=== PATIENT | male | born 1955 | race Two or more races ===

== ENCOUNTER 2024-06-02 06:48 | Emergency (ER) | payer MEDICARE, SELFPAY ==
[2024-06-02 06:48] VITALS: BMI 33.4
[2024-06-02 06:56] VITALS: BP 133/82; PULSE 105; RESP 18; TEMP 36.4; O2SAT 96
--- NOTE | 2024-06-02 06:58 | XR_ITS ---
Examination: CT abdomen and pelvis without contrast. Coronal 3-D reconstructions. Sagittal 2-D reconstructions. Date and time of exam:June 02, 2024 0812 hours INDICATIONS: Right-sided flank pain with nausea vomiting beginning 4 days ago CTDI: vol (mGy): 9.27 DLP: (mGycm): 562 Technique: Axial images of the abdomen have been obtained, 3 mm slice thickness Intravenous contrast material has not been administered. Low dose protocols were performed. One or more of the following dose reduction techniques were used; automated exposure control, adjustment of the mA and/or KV according to patient size, use of iterative reconstruction technique. Findings: No focal liver or splenic lesions Gallbladder not visualized No pancreatic mass Moderate renal parenchymal scar formation No renal or ureteral calculi, no hydronephrosis Aorta normal size Normal appendix No bowel obstruction Scattered colonic diverticulosis Marked prostatomegaly transverse dimension 6 cm Contracted urinary bladder with urinary bladder wall thickening Moderate lumbar spondylosis with advanced degenerative disc disease L5-S1 IMPRESSION: Moderate bilateral renal parenchymal scar formation No renal or ureteral calculi, no hydronephrosis Significant prostatomegaly Urinary bladder wall thickening which may represent an early urinary tract outflow obstruction secondary to the patient's marked prostatomegaly
--- NOTE | 2024-06-02 06:59 | PD.EDRME ---
Rapid Medical Screening Exam [facility] Arrival date/time: 06/02/24 06:48 68-year-old male presents to the emergency department today complaints of nausea vomiting and diarrhea as well as abdominal pain patient reports recent kidney stone surgery last month Chief Complaint: Abdominal Pain Vital signs: Vital Signs Temperature 97.6 F 06/02/24 06:56 Pulse Rate 105 H 06/02/24 06:56 Respiratory Rate 18 06/02/24 06:56 Blood Pressure 133/82 H 06/02/24 06:56 Pulse Oximetry (%) 96 06/02/24 06:56 Oxygen Delivery Method Room Air 06/02/24 06:56
[2024-06-02] MEDS: ONDANSETRON ODT 4 MG TABRAP PO (07:17)
[2024-06-02] MEDS: KETOROLAC INJ 30 MG/ML VIAL IM (07:17)
[2024-06-02 07:45] LABS: Collection Type, Urine Clean Catch
[2024-06-02 07:53] LABS: Basophils # (Auto) 0.1 Thou/mm3 (0.0-0.2); Basophils % (Auto) 1 % (0-2.5); Eosinophils # (Auto) 0.2 Thou/mm3 (0.0-0.5); Eosinophils % (Auto) 2 % (0-10); Hematocrit 53.5 % (41.0-53.0); Hemoglobin 19.4 g/dL (13.5-16.0); Immature Granulocytes % (Auto) 1 % (0-0); Immature Granulocytes Auto 0.08 Thou/mm3 (0.00-0.00); Lymphocytes # (Auto) 1.5 Thou/mm3 (1.0-4.8); Lymphocytes % (Auto) 14 % (10-50); Mean Corpuscular HGB Conc 36.3 g/dl (31.0-37.0); Mean Corpuscular Hemoglobin 30.9 pg (25.0-35.0); Mean Corpuscular Volume 85 fL (80-100); Monocytes # (Auto) 1.7 Thou/mm3 (0.0-0.8); Monocytes % (Auto) 17 % (0-12); Neutrophils # (Auto) 6.7 Thou/mm3 (1.8-7.7); Neutrophils % (Auto) 66 % (37-80); Nucleated Red Blood Cell % 0 /100 WBC (0); Platelet Count 212 Thou/mm3 (140-440); RDW Standard Deviation 38.2 fL (35.1-43.9); Red Blood Count 6.28 Miln/mm3 (4.50-5.90); White Blood Count 10.2 Thou/mm3 (3.8-10.6)
[2024-06-02 08:20] LABS: Alanine Aminotransferase 43 U/L (10-49); Albumin, Serum 4.7 gm/dL (3.4-4.8); Albumin/Globulin Ratio 1.5 (1.2-2.2); Alkaline Phosphatase 87 U/L (46-116); Anion Gap 12 (7-16); Aspartate Amino Transferase 51 U/L (0-34); BUN/Creatinine Ratio 17 Ratio (12-20); Bilirubin,Total 1.8 mg/dL (0.3-1.2); Blood Urea Nitrogen 32 mg/dL (9-23); Calcium 10.4 mg/dL (8.3-10.6); Calcium (Corrected) 10.4 mg/dL (8.5-10.1); Carbon Dioxide 25.1 mMol/L (20.0-31.0); Chloride 99 mMol/L (98-107); Creatinine (Component) 1.9 mg/dL (0.6-1.3); Globulin 3.1 gm/dL (2.3-3.5); Glucose 98 mg/dL (74-106); Lipase 44 U/L (12-53); Osmolality,Calculated 278 (275-295); Potassium 3.2 mMol/L (3.4-5.1); Sodium 136 mMol/L (136-145); Total Protein 7.8 gm/dL (5.7-8.2); eGFR 38 See Note
--- NOTE | 2024-06-02 08:29 | XR_ITS ---
Examination: Abdomen sonogram, Limited Date and time of exam: June 02, 2024 0837 hours INDICATIONS: Right upper abdominal pain and vomiting beginning 4 days ago Technique: Real-time will scale transabdominal sonographic images of the upper abdomen obtained. Findings: Absent gallbladder Normal common bile duct 0.5 cm Pancreatic head 2.5 cm Liver 16.5 cm mild fatty infiltration Normal hepatopedal portal venous flow Patent IVC IMPRESSION: Absent gallbladder Normal common bile duct Mild hepatomegaly
[2024-06-02 08:36] LABS: Bilirubin,Urine Negative (Negative); Blood,Urine 2+ (Negative); Clarity,Urine Clear (Clear/Hazy); Color,Urine Yellow (Lt Yel-Yel); Culture Indicated,Urine Not Indicated; Glucose, Urine Negative (Negative); Hyaline Casts,Urine < 1 /hpf (0-1); Ketones,Urine Negative (Negative); Leukocyte Esterase,Urine Positive (Negative); Nitrite,Urine Negative (Negative); Protein,Urine Trace (Neg - Trace); RBC,Urine 21 /hpf (0-3); Specific Gravity,Urine 1.028 (1.001-1.035); Squamous Epithelial Cell,Urine 4 /hpf (0-5); Urobilinogen,Urine Negative mg/dL (0.0-1.0); WBC,Urine 9 /hpf (0-5)
--- NOTE | 2024-06-02 11:36 | EDNOTE_ITS ---
ED Abdominal Pain RME/HPI General Chief Complaint: Abdominal Pain Stated complaint: ABD PAIN, DIARRHEA X 4DAYS Time seen by provider: 06/02/24 11:22 Arrival date/time: 06/02/24 06:48 RME / HPI RME / HPI narrative: 68-year-old male patient who is not from here, came in for evaluation regarding vomiting and diarrhea. Patient's been having diarrhea, for the last 4 days, nonbloody, with vomiting. Severity moderate. Patient denies any diarrhea. Also complained of diffuse abdominal pain, described as dull ache, severity mild. Denies any fever denies any other complaints. Related Data Previous Rx's ?Medication ?Instructions ?Recorded ciprofloxacin HCl 500 mg tablet 500 mg PO BID #14 tabs 06/02/24 (Cipro) metoclopramide HCl 10 mg tablet 10 mg PO Q6H PRN nause a and 06/02/24 (Reglan) vomiting #20 tabs pantoprazole 40 mg tablet,delayed 40 mg PO QDAY #14 ta bs 06/02/24 release (Protonix) Allergies Allergy/AdvReac Type Severity Reaction Status Date / Time codeine Allergy Mild Wheezing Verified 06/02/24 06:52 Sulfa (Sulfonamide Allergy Mild Swelling Verified 06/02/24 06:52 Antibiotics) of Lip/Tongue/Throat Iodinated Contrast Media Allergy Verified 06/02/24 06:52 Penicillins Allergy Verified 06/02/24 06:52 ALLOINOL Allergy Uncoded 06/02/24 06:52 Review of Systems Review of Systems Narrative Review of Systems: Review of system reviewed and within normal limits except mentioned in HPI ED Exam Narrative Physical exam: VITAL SIGNS: Reviewed. GENERAL APPEARANCE: Alert and interactive, follows commands, no acute distress, HEAD AND FACE: Non-traumatic. ENT: PERRL, pink conjunctivitis, eyelid no trauma, Mucous membrane moist. NECK: Supple, nontender, no nuchal rigidity. CHEST: No tenderness, no crepitus, no paradoxical movement, no retractions. LUNGS: Clear, well ventilated, symmetric, no rales, no wheezing, no ronchi, no stridor, good breath sounds bilaterally. HEART: Regular rate, regular rhythm, no murmur, no gallops. ABDOMEN: Soft, positive bowel sounds, nondistended, no guarding, nontender, no rebound, no masses, RECTAL: Deferred. GENITAL: Deferred. NEUROLOGICAL: Gross motor function intact sensory function intact, Appropriate for age. MUSCULOSKELETAL: low back nontender, full range of motion. EXTREMITIES: Nontender, full range of motion. SKIN: Color pink, dry, no rash, no lacerations, no abrasions, no contusions. LYMPHATICS: Deferred. Course Quality Measures none Orders Category Date Time Status Bedside Influenza A&B Antigen Test NOW Care 06/02/24 07:[address] abdomen pelvis wo con Stat Exams 06/02/24 06:58 Completed US gall bladder Stat Exams 06/02/24 08:29 Completed CBC Stat Lab 06/02/24 07:18 Completed Comprehensive Metabolic Panel Stat Lab 06/02/24 07:18 Completed Lipase Stat Lab 06/02/24 07:18 Completed UA, C/S IF [Urinalysis, C/S if Indicated] Stat Lab 06/02/24 07:14 Completed Famotidine Inj [Pepcid Inj] Med 06/02/24 11:33 Discontinued 20 mg IVP X1 ONE Ketorolac Inj [Toradol Inj] Med 06/02/24 06:58 Discontinued 30 mg IM X1 ONE Metoclopramide Inj [Reglan Inj] Med 06/02/24 11:33 Discontinued 10 mg IVP X1 ONE Ondansetron Odt [Zofran Odt] Med 06/02/24 06:58 Discontinued 4 mg PO X1 ONE Potassium Chloride [K-Dur] Med 06/02/24 11:33 Discontinued 40 meq PO X1 ONE Sodium Chloride 0.9% 1000 ml [Ns] 1,000 ml Med 06/02/24 11:34 Discontinued IV 999 mls/hr cefTRIAXone/D5w 1gm IV premix [Rocephin/D5w 1gm IV Med 06/02/24 11:35 Discontinued premix] 1 gm in 50 ml IV X1 Vital Signs Vital signs: Vital Signs Temperature 97.6 F 06/02/24 06:56 Pulse Rate 105 H 06/02/24 06:56 Respiratory Rate 18 06/02/24 06:56 Blood Pressure 133/82 H 06/02/24 06:56 Pulse Oximetry (%) 96 06/02/24 06:56 Oxygen Delivery Method Room Air 06/02/24 06:56 Abdominal Pain MDM MDM Narrative MDM Narrative:: 68-year-old male patient who is not from here, came in for evaluation regarding vomiting and diarrhea. Patient's been having diarrhea, for the last 4 days, nonbloody, with vomiting. Severity moderate. Patient denies any diarrhea. Also complained of diffuse abdominal pain, described as dull ache, severity mild. Denies any fever denies any other complaints. CBC no leukocytosis noted. Creatinine was noted to be slightly elevated 1.9, BUN of 32, potassium 3.2 urinalysis positive for UTI. CT scan of the abdomen and pelvis came back with no acute pathology except for possible cystitis pattern. Ultrasound of gallbladder came back unremarkable. Results discussed with the patient. Patient received IV fluids, ceftriaxone IV, Toradol, Pepcid IV Reglan Zofran and potassium replacement. Patient was advised to return to emergency room in 2 days for repeat renal function test since patient is from out of town. Patient had no PCP in this locality. Patient is tolerating p.o. fluid in the emergency room. Patient data External records reviewed:: None Clinical information provided by:: patient Social determinants that could affect healthcare access:: none Patient has the following chronic illnesses:: None How is presenting disease/condition affected by chronic disease/condition?: no chronic disease Evaluation data The following diagnostics were reviewed and interpreted by me:: lab results and radiology exam(s) Lab and/or radiology exams considered but not ordered:: None Interpretation Summary: See results in [facility] Medications / Prescriptions Medications or Prescriptions considered but not ordered:: None Medication administrations:: Medication Administration History Discontinued Medications Famotidine (Famotidine Inj 10 Mg/Ml Vial 2 Ml) 20 mg IVP X1 ONE Stop: 06/02/24 11:34 Last Admin: 06/02/24 11:57 Dose: 20 mg Documented By: ER Sodium Chloride (Ns) 1,000 mls @ 999 mls/hr IV .Q1H1M ONE Stop: 06/02/24 12:34 Last Infusion: 06/02/24 12:51 Dose: Infused Documented By: Admin: 06/02/24 11:50 Dose: 999 mls/hr Documented By: ER Ceftriaxone Sodium/Dextrose (Rocephin/D5w 1gm Iv Premix) 1 gm in 50 mls @ 100 mls/hr IV X1 ONE; Protocol Stop: 06/02/24 12:04 Last Infusion: 06/02/24 12:32 Dose: Infused Documented By: Admin: 06/02/24 12:02 Dose: 100 mls/hr Documented By: ER Ketorolac Tromethamine (Ketorolac Inj 30 Mg/Ml Vial) 30 mg IM X1 ONE Stop: 06/02/24 06:59 Last Admin: 06/02/24 07:17 Dose: 30 mg Documented By: EH Metoclopramide HCl (Metoclopramide Inj 5 Mg/Ml Vial 2 Ml) 10 mg IVP X1 ONE; Protocol Stop: 06/02/24 11:34 Last Admin: 06/02/24 11:59 Dose: 10 mg Documented By: ER Ondansetron HCl (Ondansetron Odt 4 Mg Tabrap) 4 mg PO X1 ONE; Protocol Stop: 06/02/24 06:59 Last Admin: 06/02/24 07:17 Dose: 4 mg Documented By: EH Potassium Chloride (Potassium Chloride 20 Meq Tabcr) 40 meq PO X1 ONE Stop: 06/02/24 11:34 Last Admin: 06/02/24 12:05 Dose: 40 meq Documented By: ER Reglan, Zofran potassium replacement Toradol ceftriaxone IV IV fluids hydration. Consultations Consultation(s) initiated? (list below): No Diagnosis Differential diagnosis abdominal pain: abdominal pain and gastroenteritis Most likely diagnosis given after review of the tests above:: Dehydration, nausea and vomiting, UTI Admission Indicated Admission indicated?: not indicated Admission Request Was there a request for admission?: No Disposition Plan Disposition Plan: Discharge Discharge Attestation Discharge Attestation: The patient was given an opportunity to ask questions and understood the discharge instructions. Discharge instructions specifically effects, indications for sooner follow up or return to the emergency department, and the expected course of current diagnosis. Patient condition: Stable Discharge Plan Plan Patient Disposition: HOME (Self Care) Disposition Comment: stable Prescriptions/Referrals Prescriptions/Med Rec: New metoclopramide HCl [Reglan] 10 mg tablet 10 mg PO Q6H PRN (Reason: nausea and vomiting) Qty: 20 0RF pantoprazole [Protonix] 40 mg tablet,delayed release (DR/EC) 40 mg PO QDAY Qty: 14 0RF ciprofloxacin HCl [Cipro] 500 mg tablet 500 mg PO BID Qty: 14 0RF Referrals: Temporary Provider,ED [Primary Care Provider] - In 1 week Problem List Clinical Impression: Nausea & vomiting, UTI (urinary tract infection), Dehydration Patient/Caregiver Discharge Instructions Discharge Activity: activity as tolerated Education Materials: Urinary Tract Infections in Men, Dehydration Additional Instructions: Thank you for the opportunity for serving you today. You are stable for discharged . You are advised to: Follow-up with your PCP in 1 to 2 days Return to ED for worsening of symptoms Increase oral fluids Take medication as prescribed Print Language: Kazakh Stand Alone Forms: Julissa Award Info., Work/School Release, Patient Portal Info Letter
[2024-06-02 11:44] VITALS: BP 128/86; PULSE 91; RESP 18; TEMP 36.7; O2SAT 95
[2024-06-02] MEDS: SODIUM CHLORIDE 0.9% 1000 ML 1,000 ML 999 ML IV (11:50)
[2024-06-02] MEDS: FAMOTIDINE INJ 10 MG/ML VIAL 2 ML 20 MG IVP (11:57)
[2024-06-02] MEDS: METOCLOPRAMIDE INJ 5 MG/ML VIAL 2 ML 10 MG IVP (11:59)
[2024-06-02] MEDS: cefTRIAXone/D5w 1gm IV premix 1 GM/50 ML BAG IV (12:02)
[2024-06-02] MEDS: POTASSIUM CHLORIDE 20 mEq TABCR 40 MEQ PO (12:05)
[2024-06-02 13:34] VITALS: BP 123/77; PULSE 80; RESP 16; TEMP 36.7; O2SAT 95
== END 2024-06-02 14:45 | disposition home or self-care (01) ==
PROVIDERS: Nurse Practitioner Primary Care; Emergency Provider Emergency Medicine
DX: E86.0 Dehydration (principal); N39.0 Urinary tract infection, site not specified; R10.11 Right upper quadrant pain; R11.2 Nausea with vomiting, unspecified
CPT/HCPCS: 36415; 74176; 76705; 80053; 81001; 83690; 85025; 87400; 96372; 96374; 96375; 99284; J0696; J1885; J2765; J3490; J7030; Q0162; A9270